=== PATIENT | female | born 1960 | race Caucasian/White ===

== ENCOUNTER 2018-07-03 19:48 | Emergency (ER) | payer BC ==
--- NOTE | 2018-07-03 23:47 | XR ---
EXAMINATION TYPE: 3 views right knee DATE OF EXAM: 07/03/2018 COMPARISON: None HISTORY: 58 year-old female right knee pain after twisting injury FINDINGS: Small knee joint effusion. There may be mild thickening of the quadriceps tendon. No acute fracture, subluxation, or dislocation is seen. IMPRESSION: 1. No acute osseous abnormality seen. 2. Moderate joint effusion. If concern for internal arrangement, MRI can be performed. 3. There may also be mild thickening of the quadriceps tendon. If concern for injury to the extensor mechanism, MRI can also evaluate this region.
--- NOTE | 2018-07-04 10:09 | US ---
Right leg duplex venous sonogram. History pain. Comparison none. FINDINGS: Right leg is scanned and there is normal flow and compressibility from the common femoral vein to the popliteal vein. There is normal augmentation. IMPRESSION: Normal right leg duplex venous sonogram.
== END 2018-07-04 00:40 | disposition home or self-care (01) ==
LOC: EC 19:48
DX: M25.561 Pain in right knee (principal); M25.461 Effusion, right knee; F17.200 Nicotine dependence, unspecified, uncomplicated; X50.1XXA Overexertion from prolonged static or awkward postures, initial encounter
CPT/HCPCS: 99283

== ENCOUNTER → 2023-09-09 | Outpatient (CLI) | payer BC ==
--- NOTE | 2023-09-10 14:28 | MM ---
Reason for Exam: Screening (asymptomatic). Last mammogram was performed 8 year(s) and 10 month(s) ago. Patient History: Menarche at age 11. First Full-Term at age 22. Postmenopausal. Other cancer. Paternal aunt had breast cancer. Risk Values: Preethi 5 year model risk: 1.5%. NCI Lifetime model risk: 6.8%. Prior Study Comparison: 11/14/2014 Bilateral Screening Mammogram, [facility]. Tissue Density: The breasts are heterogeneously dense, which may obscure small masses. Findings: Analyzed By CAD. Right breast: Asymmetry MLO view upper aspect, middle depth, measuring 5.2 mm, approximately 4.8 mm from the nipple. There is no suspicious group of microcalcifications. Left breast: There is no suspicious group of microcalcifications or new suspicious mass. Overall Assessment: Incomplete: need additional imaging evaluation, BI-RAD 0 Management: Diagnostic Mammogram of the right breast. [facility] will attempt to contact patient to return for supplemental views and ultrasound if indicated. Patient should continue monthly self-breast exams. A clinical breast exam by your physician is recommended on an annual basis. This exam should not preclude additional follow-up of suspicious palpable abnormalities. Note on Preethi scores and lifetime risk: 1. A Preethi score greater than 3% is considered moderate risk. If this is the case, consider specialist referral to assess eligibility for a risk reducing agent. 2. If overall lifetime risk for the development of breast cancer is 20% or higher, the patient may qualify for future screening with alternating mammogram and breast MRI. Electronically signed and approved by: Ye Abdi DO
== END | disposition home or self-care (01) ==
LOC: RADMAMWWP 14:57
PROVIDERS: ATTEND Pediatrics
DX: Z12.31 Encounter for screening mammogram for malignant neoplasm of breast (principal); Z80.3 Family history of malignant neoplasm of breast; Z78.0 Asymptomatic menopausal state
CPT/HCPCS: 77067

== ENCOUNTER → 2023-09-09 | Outpatient (CLI) | payer BC ==
--- NOTE | 2023-09-09 16:10 | CTL ---
EXAMINATION TYPE: CT Low Dose Lung DATE OF EXAM ORDERED: 09/09/2023 COMPARISON: None HISTORY: . Low Dose CT Lung Screening CT DLP: 100.[address] CTDI: 2.6 mGy IV CONTRAST USED: None. SCREENING VISIT: First visit COMPARISON: None. TECHNIQUE: Low dose computed tomography scan was performed through the chest at 1 millimeter thick se ctions and reconstructed images in the coronal plane at [address] DIAGNOSTIC QUALITY: Satisfactory FINDINGS: LUNG NODULES: Not presentLeft lung: no nodules identified.Right lung: no nodules identified. LUNGS: COPD: Severity: Mild. Atelectasis in the regions of the upper lobes Anteriorly. Fibrosis: Severity:None Lymph nodes: None Other findings: None RIGHT PLEURAL SPACE: Effusion: None Calcification: None Thickening: None Pneumothorax: None LEFT PLEURAL SPACE: Effusion: None Calcification: None Thickening: None Pneumothorax: None HEART: Heart Size: Mildly enlarged Coronary calcification: Mild Pericardial effusion: None OTHER FINDINGS: Upper abdomen: No significant abnormality Bony thorax: Degenerative changes Supraclavicular region: No significant abnormalityOther: No significant abnormalityI IMPRESSION: COPD without concerning nodule greater than [address] CHEST RECOMMENDATION: Follow-up screening in one year CT LUNG RAD: LUNG RAD CATEGORY 1 negative
== END | disposition home or self-care (01) ==
LOC: RADCTMAIN 15:32
PROVIDERS: ATTEND Pediatrics
DX: Z12.2 Encounter for screening for malignant neoplasm of respiratory organs (principal); J44.9 Chronic obstructive pulmonary disease, unspecified; F17.210 Nicotine dependence, cigarettes, uncomplicated
CPT/HCPCS: 71271

== ENCOUNTER → 2023-09-16 | Outpatient (CLI) | payer BC ==
--- NOTE | 2023-09-16 10:59 | USB ---
Reason for Exam: Additional evaluation requested from abnormal screening. Patient History: Menarche at age 11. First Full-Term at age 22. Postmenopausal. Patient has history of breast feeding. Other cancer. Paternal aunt had breast cancer. Risk Values: Preethi 5 year model risk: 1.5%. NCI Lifetime model risk: 6.8%. Technique: Method: Targeted. Prior Study Comparison: 11/14/2014 Bilateral Screening Mammogram, [facility]. 09/09/2023 Bilateral MG screening mammo w CAD, [facility]. Findings: The upper outer quadrant of the right breast, the axilla of the right breast and the retroareolar of the right breast were scanned. No solid or cystic masses are identified.. Overall Assessment: Probably benign, BI-RAD 3 Management: Diagnostic Mammogram of the right breast in 6 months. A clinical breast exam by your physician is recommended on an annual basis and results should be correlated with mammographic findings. This exam should not preclude additional follow-up of suspicious palpable abnormalities. Results were given to the patient verbally at the time of exam. Electronically signed and approved by: Stephen Carballo M.D. Radiologis
--- NOTE | 2023-09-16 11:00 | MM ---
Reason for Exam: Additional evaluation requested from abnormal screening. Last screening mammogram was performed less than 1 month ago. Patient History: Menarche at age 11. First Full-Term at age 22. Postmenopausal. Patient has history of breast feeding. Other cancer. Paternal aunt had breast cancer. Risk Values: Preethi 5 year model risk: 1.5%. NCI Lifetime model risk: 6.8%. Prior Study Comparison: 11/14/2014 Bilateral Screening Mammogram, [facility]. 09/09/2023 Bilateral MG screening mammo w CAD, [facility]. Tissue Density: Right: The breasts are heterogeneously dense, which may obscure small masses. Findings: Analyzed By CAD. Asymmetric density suggested at the right 11:00 position 5 cm from the nipple. Ultrasound is advised. Overall Assessment: Incomplete: need additional imaging evaluation, BI-RAD 0 Management: Diagnostic Breast Ultrasound of the right breast. . Results were given to the patient verbally at the time of exam. Patient should continue monthly self-breast exams. A clinical breast exam by your physician is recommended on an annual basis. This exam should not preclude additional follow-up of suspicious palpable abnormalities. Note on Preethi scores and lifetime risk: 1. A Preethi score greater than 3% is considered moderate risk. If this is the case, consider specialist referral to assess eligibility for a risk reducing agent. 2. If overall lifetime risk for the development of breast cancer is 20% or higher, the patient may qualify for future screening with alternating mammogram and breast MRI. Electronically signed and approved by: Stephen Carballo M.D. Radiologis
== END | disposition home or self-care (01) ==
LOC: RADMAMWWP 09:56
PROVIDERS: ATTEND Pediatrics
DX: R92.331 Mammographic heterogeneous density, right breast (principal); Z78.0 Asymptomatic menopausal state; Z80.3 Family history of malignant neoplasm of breast
CPT/HCPCS: 77061; 77065

== ENCOUNTER 2023-12-12 17:46 | Emergency (ER) | payer BC ==
[2023-12-12 17:58] VITALS: TEMP 98.1
[2023-12-12 18:12] LABS: Basophils # (A) 0.1 k/uL (0-0.2); Basophils % (A) 0 %; Eosinophils # (A) 0.2 k/uL (0-0.7); Eosinophils % (A) 1 %; HCT 41.1 % (34.0-46.0); HGB 13.4 gm/dL (11.4-16.0); Lymphocytes # (A) 1.9 k/uL (1.0-4.8); Lymphocytes % (A) 14 %; MCH 33.1 pg (25.0-35.0); MCHC 32.5 g/dL (31.0-37.0); MCV 101.8 fL (80.0-100.0); Macrocytosis Slight; Monocytes # (A) 0.6 k/uL (0-1.0); Monocytes % (A) 5 %; Neutrophils # (A) 10.3 k/uL (1.3-7.7); Neutrophils % (A) 78 %; Platelet Count 333 k/uL (150-450); RBC 4.04 m/uL (3.80-5.40); RDW 13.1 % (11.5-15.5); WBC 13.2 k/uL (3.8-10.6)
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
[2023-12-12 18:27] LABS: African American GFR (CKD) >90 (>60 ml/min/1.73 sqM); Alkaline Phosphatase 234 U/L (38-126); Anion Gap 4 mmol/L; Blood Urea Nitrogen 14 mg/dL (7-17); Calcium 9.2 mg/dL (8.4-10.2); Carbon Dioxide 25 mmol/L (22-30); Chloride 111 mmol/L (98-107); Glucose 111 mg/dL (74-99); Magnesium 1.9 mg/dL (1.6-2.3); Non-African American GFR(CKD) >90 (>60 ml/min/1.73 sqM); Potassium 4.2 mmol/L (3.5-5.1); Sodium 140 mmol/L (137-145); Total Bilirubin 2.3 mg/dL (0.2-1.3); Total Protein 6.7 g/dL (6.3-8.2)
[2023-12-12 18:30] LABS: Partial Thromboplastin Time 22.3 sec (22.0-30.0); Prothrombin Time 10.9 sec (10.0-12.5)
[2023-12-12 18:34] LABS: NT-Pro-B-Type Natriuretic Pept 56 pg/mL
--- NOTE | 2023-12-12 18:36 | XR ---
EXAMINATION TYPE: XR chest 2V DATE OF EXAM: 12/12/2023 6:19 PM CLINICAL INDICATION:Female, 63 years old with history of Chest Pain; COMPARISON: Chest radiographs from 07/12/2022 TECHNIQUE: XR chest 2V Frontal view of the chest. FINDINGS: Lungs/Pleura: There is no evidence of pleural effusion, focal consolidation, or pneumothorax. Pulmonary vascularity: Unremarkable. Heart/mediastinum: Cardiomediastinal silhouette is unremarkable. Musculoskeletal: No acute osseous pathology. IMPRESSION: No acute cardiopulmonary disease/process.
[2023-12-12 18:58] LABS: AST 839 U/L (14-36)
[2023-12-12 19:15] LABS: ALT 987 U/L (4-34); Lipase >20000 U/L (23-300)
--- NOTE | 2023-12-12 20:37 | US ---
EXAMINATION TYPE: US gallbladder DATE OF EXAM: 12/12/2023 COMPARISON: NONE CLINICAL INDICATION: Female, 63 years old with history of pain; Chest pain, abnormal labs TECHNIQUE: Multiple sonographic images of the right upper quadrant are obtained. FINDINGS: EXAM MEASUREMENTS: Liver Length: 16.0 cm Gallbladder Wall: 0.2 cm CBD: 0.8 cm Right Kidney: 10.7 x 5.2 x 4.7 cm MODEL BUILDER NOTES: Pancreas: wnl, head and tail obscured by overlying bowel gas Liver: wnl Gallbladder: Multiple gallstones Evidence for sonographic Geller's sign: No CBD: Dilated Right Kidney: wnl IMPRESSION: 1. No evidence for acute process. 2. Cholelithiasis.
[2023-12-12] MEDS: SODIUM CHLORIDE 0.9% 1,000 ML IV STA (21:12)
[2023-12-12] MEDS: SODIUM CHLORIDE 0.9% 500 ML 500 ML IV STA (21:12)
--- NOTE | 2023-12-12 21:35 | CT ---
EXAMINATION TYPE: CT angio chest CT DLP: Combined DLP of 1114.2 mGycm, Automated exposure control for dose reduction was used. DATE OF EXAM: 12/12/2023 9:09 PM COMPARISON: 09/09/2023 CLINICAL INDICATION:Female, 63 years old with history of pain; Elevated D-dimer. TECHNIQUE/CONTRAST: CTA scan of the thorax is performed with IV Contrast, patient injected with 100 ml mL of Isovue 370, MIP images are created and reviewed these are created on a separate workstation.. FINDINGS: Pulmonary Artery: There is no evidence for a filling defect within the pulmonary vasculature to sugge st acute pulmonary embolism. The pulmonary artery is of normal size. Lungs/Pleura: Mild interlobular septal thickening. No evidence of focal consolidation, pleural effusi on or pneumothorax. Airway: Large airways are patent. Heart: Heart is within normal limits for size. Vasculature: No evidence of aortic aneurysm. Mediastinum: No gross evidence of adenopathy. Musculoskeletal: No acute osseous abnormalities Soft Tissues/lymph nodes: Unremarkable. Lower neck: No significant findings. Left adrenal nodule measuring 20 mm. Fat stranding changes around the pancreas. IMPRESSION: 1. No evidence of pulmonary embolism. 2. Fat stranding changes around the pancreas correlate with serum markers for pancreatitis. 3. Pulmonary vascular congestion, correlate with serum BNP. 4. Indeterminate left adrenal nodule measuring 20 mm.
[2023-12-12 21:40] VITALS: RESP 18
--- NOTE | 2023-12-12 21:40 | CT ---
EXAMINATION TYPE: CT abdomen pelvis w con CT DLP: Combined DLP of 1114.2 mGycm, Automated exposure control for dose reduction was used. DATE OF EXAM: 12/12/2023 9:09 PM COMPARISON: None CLINICAL INDICATION:Female, 63 years old with history of pain; Abdominal pain. TECHNIQUE: Axial CT abdomen pelvis w con;Sagittal and coronal reformats were created on a separate w orkstation. Contrast used:100 ml mL of Isovue 370 with IV Contrast, (none if empty) Oral contrast used: without Oral Contrast (none if empty) FINDINGS: LOWER CHEST: Unremarkable ABDOMEN LIVER: Left hepatic lobe lesion measuring 9 mm which demonstrates arterial phase enhancement. GALLBLA DDER AND BILE DUCTS: Unremarkable. PANCREAS: Fat stranding changes around the pancreatic parenchyma. SPLEEN: Fat stranding changes around the pancreatic parenchyma. ADRENAL GLANDS: Indeterminate left 20 mm adrenal nodule. KIDNEYS AND URETERS: No evidence of hydronephrosis or renal calculus. The ureters are unremarkable. PELVIS BLADDER: Unremarkable REPRODUCTIVE: Unremarkable. ABDOMEN & PELVIS STOMACH AND BOWEL: No evidence of bowel obstruction. Scattered colonic diverticula. Appendix is siddharth l. PERITONEUM/RETROPERITONEUM: No evidence of pneumoperitoneum or free fluid. VASCULATURE: No evidence of aortic aneurysm. MUSCULOSKELETAL: No acute osseous abnormalities LYMPH NODES: No gross evidence for lymphadenopathy. SOFT TISSUE/ABDOMINAL WALL: Unremarkable IMPRESSION: 1. Fat stranding changes around the pancreatic parenchyma correlate serum markers for pancreatitis. 2. Indeterminate left adrenal nodule measuring 20 mm. Consider dedicated adrenal mass protocol CT. 3. Arterial enhancing lesion measuring 9 mm in the left hepatic lobe which is indeterminate. Conside r MRI liver mass protocol for complete characterization.
[2023-12-12] MEDS: PIPERACILLIN-TAZOBACTAM 3.375 GM in SODIUM CHLORIDE 0.9% 100 ML IVPB ONE (22:38)
[2023-12-12] MEDS: PIPERACILLIN-TAZOBACTAM 3.375 GM in SODIUM CHLORIDE 0.9% 100 ML IVPB STA (23:05)
[2023-12-12 23:45] VITALS: BP 147/90; PULSE 60
[2023-12-13] MEDS ORDERED: PIPERACILLIN-TAZOBACTAM 3.375 GM in SODIUM CHLORIDE 0.9% 100 ML IVPB SCH
== END 2023-12-12 23:44 | disposition other institution (70) ==
LOC: EC 17:46
DX: K80.20 Calculus of gallbladder without cholecystitis without obstruction (principal); K85.90 Acute pancreatitis without necrosis or infection, unspecified
CPT/HCPCS: 36415; 93005; 85379; 83880; 80053; 83605; 83690; 83735; 84484; 85025; 85610; 85730; 87040; 80143; 71046; 76705; 71275; 74177; 99285; 96365; 96361; J2543; Q9967